=== PATIENT | female | born 1940 | race Caucasian/White ===

== ENCOUNTER → 2019-03-16 15:58 | Outpatient (CLI) | payer OTHER, SELFPAY ==
[2013-07-10 12:32] VITALS: BMI 41.8
--- NOTE | 2019-03-16 16:08 | RAD_ITS ---
STUDY: X-RAY - RIGHT KNEE REASON FOR EXAM: Female, 79 years old. Knee pain. TECHNIQUE: 4 view(s) of the knee. COMPARISON: None. FINDINGS: Normal visualized distal femur. Normal visualized proximal tibia and fibula. Normal proximal tibiofibular articulation. There is mild degenerative arthrosis of the medial femorotibial compartment. Normal lateral femorotibial compartment. There is mild degenerative arthrosis of the patellofemoral articulation. There is lateral patellar tilt. The soft tissue structures are unremarkable. RAD/Knee 4 or More Views IMPRESSION: Degenerative changes. Lateral patellar tilt. Electronically Signed: Preeti Menard MD at 16:56 EDT Tel , Service support ,
== END ==
PROVIDERS: Family Provider Internal Medicine; PCP Internal Medicine; Referring Provider Family Medicine; Visit Provider Family Medicine
DX: M25.561 Pain in right knee (principal)
CPT/HCPCS: 73564

== ENCOUNTER → 2019-08-31 12:43 | Outpatient (CLI) | payer MEDICARE, SELFPAY ==
[2013-07-10 12:32] VITALS: BMI 41.8
[2019-08-31 14:09] LABS: Vitamin D,25 Hydroxy 7.5 ng/mL (29.95-100.01)
[2019-08-31 14:21] LABS: ALB/GLOB Ratio 1.1 RATIO (0.9-2.4); AST(SGOT) 19 U/L (15-37); Alanine Aminotransfer ALT/SGPT 25 U/L (13-56); Albumin, Serum 3.8 g/dL (3.2-5.0); Alkaline Phosphatase 81 U/L (45-117); Anion Gap 7 (5-15); BUN 15 mg/dL (7-18); BUN/Creat Ratio 12.7 RATIO (10-20); Chloride 107 mmol/L (98-107); Cholesterol 249 mg/dL (200); Creatinine, Serum 1.18 mg/dL (0.55-1.02); EST Glomerular Filtration Rate 47 mL/min (>60); Est Glom Filt Rate - Afr Amer 57 mL/min (>60); Globulin 3.6 g/dL (2.2-4.2); Glucose 88 mg/dL (74-106); High Density Lipoprotein 81 mg/dL; Potassium 4.5 mmol/L (3.5-5.1); Protein, Total 7.4 g/dL (6.4-8.2); Sodium Level 138 mmol/L (136-145); Thyroid Stim Hormone (TSH) 1.63 uIU/mL (0.358-3.74); Triglycerides 139 mg/dL; Very Low Density Lipoprotein 28 mg/dL (5-40)
[2019-08-31 15:28] LABS: Hemoglobin 10.8 g/dL (12.0-15.0); Mean Corpuscular Hgb 25.6 pg (27.0-32.0); Mean Corpuscular Volume 85.3 fL (81-99); Mean Platelet Vol. 9.9 fl (6.2-12.0); Platelet Count 194 K/mm3 (150-450); RBC Distribution Width CV 14.8 % (11.6-14.6); RBC Distribution Width SD 46.1 fl (35.1-43.9); Red Blood Count 4.22 M/mm3 (4.2-5.4); White Blood Count 4.9 K/mm3 (4.4-11.0)
== END ==
PROVIDERS: PCP Family Medicine; Referring Provider Family Medicine; Visit Provider Family Medicine
DX: I10 Essential (primary) hypertension (principal); E78.00 Pure hypercholesterolemia, unspecified; K21.9 Gastro-esophageal reflux disease without esophagitis; F32.9 Major depressive disorder, single episode, unspecified
CPT/HCPCS: 36415; 80053; 80061; 82306; 84443; 85027

== ENCOUNTER → 2020-01-19 12:23 | Outpatient (CLI) | payer MEDICARE, SELFPAY ==
--- NOTE | 2020-01-19 12:25 | RAD_ITS ---
STUDY: X-RAY - LUMBAR SPINE REASON FOR EXAM: Female, 80 years old. Several fall in the past, leg pain and low back pain TECHNIQUE: 5 view(s) of the lumbar spine were obtained including oblique views. COMPARISON: None FINDINGS: Normal lumbar lordosis. There is no substantial scoliosis. Grade 1 anterolisthesis of L4 on L5 There is multilevel endplate spondylosis of the lumbar vertebrae. There is multi-level degenerative disc disease with multi-level disc space narrowing. Facet joint osteoarthritis. There is atherosclerotic calcification of the abdominal aorta without a demonstrated aneurysm. RAD/L/S Spine Min 4 Views IMPRESSION: Degenerative changes of the spine, as detailed above. Facet joint osteoarthritis. Grade 1 anterolisthesis of L4 on L5 without spondylolysis. Electronically Signed: Vin Workman, at 13:22 EDT , Service support ,
== END ==
PROVIDERS: PCP Family Medicine; Referring Provider Family Medicine; Visit Provider Family Medicine
DX: M79.606 Pain in leg, unspecified (principal)
CPT/HCPCS: 72110

== ENCOUNTER 2020-02-16 13:00 | Outpatient (RCR) | payer MEDICARE, SELFPAY ==
--- NOTE | 2020-01-31 14:15 | HP.PTEVAL ---
Patient's Visit Information KIM WALKER is a 80 year old F referred to Physical Therapy by Dr. Be Johns MD with a diagnosis of Balance problems , falls. Date of Evaluation: 01/31/20 Physical Therapist: Surendra Bates DPT, OCS, CSCS - Visit Plan Frequency: 2x /Week Duration: 2 Weeks Plan: Pt unable to afford multiple frequency PT visits. Willing to try 3 visits to teach HEP for home. Please teach and give pics for HEP: rows, shoulder ex, shoulder ext rotation. hip abd, march and ext in stand. bridging. heel rasies. minisquats. stand balance. Give as HEP in 3 visits if safety allows with pics. - Subjective Fell twice on back, first time on cement just losing balance. The second time at the end of December fell backwards in the tub. Landed BW both times. Nothing seriously hurt with these falls, just sore. R knee was messed up last summer at [employer] sliding into picnic table, never went to doctor. L knee hurts to strasiten knee 11/18. Has not been out but 4 times in last 3 motnhs. No spinning dizzyness lately. No neuropathy in legs. Could not get up off floor by herself when she fell. Feels safe in bed and sleeps well. Uses wh walker to get around but just started using it. It hurts her arms to walk. Steps outside with railing are OK. Retired.]Not much done during day. No regular exercises. Basic ADLs are getting done as she lives alone, hard to stand long enough to do dishes as she shakes if she stands too long. - Pain L knee and leg Pain Intensity (Out of 10): 0 Pain Intensity Range: 0, 4 - Objective Walks with wh walker using it for much WB through UE and short steps, slightly hunched over. Multiple attempts needed to exit chair with UE. Mat trasnfers slow asnd labored showing weakness in the core. steps not tested today. LE AROM WFL except L knee is missing 10 degrees active ext. HS and quads mod tight, tissue generally tender throughout legs in larger muscles. strength ankles 3+, knees ext L 3- and R 3, flexion 3/5, hip felxion 3+ R and 3 L, abd 3+ B, ext 3 B. reflexes 0/3 patella myrna chilles, no clonus. Sensation WNl to gross light touch LE. Coordination is min deficits to reciprocal toe tap B. Unable to walk without AD today more than 2 steps due to weakness and fear of knee hurting...dysfunctional without walker wh. Unable to test FGA today. Stand balance is fair eo and fair - ec, dynamic perturbations freak her out. - Goals Goal 1:: I approp HEP LE and core ex with baalnce to limit future problems Goal Time Frame: 2 Weeks Goal 2:: Pt able to tolerate 200 feet of walking to perform FGA Goal Time Frame: 2-4 Weeks Goal 3:: Pt feel 50% better in mobility. Goal Time Frame: 4-6 Weeks - Rehabilitation Potential Physical Therapy Diagnosis: Balance and strength deficits from sedentarism last 3 months. Rehabilitation Potential: Fair - Anticipated Interventions Patient/Client Instruction: Educate patient on: Condition, Plan of Care, Risk Factors For the Purpose of:: To improve muscle performance and motor function, To increase tolerance to activity/condition/position, To improve ability of physical actions for home/community/work/leisure, To improve gait and locomotor functions Therapeutic Exercise to Include: Strength training, Balance training, Flexibilty training, Gait and locomotor training, Passive ROM, Active ROM For the Purpose of:: To improve muscle performance and motor function, To increase tolerance to activity/condition/position, To improve ability of physical actions for home/community/work/leisure, To improve safety Thank you for the opportunity to evaluate your patient. For Medicare and Medicare HMO plans, please review the plan of care and approve it. It will need to be FAXED BACK to us at [phone] for Medicare purposes. For Medicare only, by signing this I certify the plan of care. Please let me know if there are questions or concerns regarding this plan of care. Physician Signature: Date:
== END 2020-02-16 19:00 | disposition home or self-care (01) ==
LOC: PT 13:00
PROVIDERS: PCP Family Medicine; Referring Provider Family Medicine; Visit Provider Family Medicine
DX: R26.9 Unspecified abnormalities of gait and mobility (principal); R29.6 Repeated falls
CPT/HCPCS: 97110; 97162

== ENCOUNTER → 2021-01-11 12:53 | Outpatient (CLI) | payer MEDICARE, SELFPAY ==
--- NOTE | 2021-01-11 13:00 | CT_ITS ---
STUDY: CT BRAIN WITHOUT CONTRAST REASON FOR EXAM: Female, 80 years old. Frequent falls. Dizziness. RADIATION DOSAGE (If Supplied By Facility): CTDIvol = ( 44.99 ) mGy, DLP = ( 796.11 ) mGycm TECHNIQUE: Transaxial CT imaging of the brain was performed without administration of intravenous contrast material. Individualized dose optimization techniques were used for this CT. COMPARISON: No relevant priors. FINDINGS: Normal soft tissue structures. Normal calvarium. There is moderate cerebral atrophy with widening of the extra-axial spaces and ventricular dilatation. Prominence of the CSF spaces bilaterally worse on the right side. These changes may be related to chronic subdural hematomas with the patient''s history of frequent falls. Normal white matter tracts of the cerebral hemispheres. Old lacunar infarct in the insular cortex of the left temporal lobe. Normal brainstem. Normal cerebellum. There is no intracranial hemorrhage. There are no findings of an acute ischemic infarction. Atherosclerotic calcification of the vertebral arteries and cavernous portions of the internal carotid arteries bilaterally. Normal visualized paranasal sinuses. CT/Brain/Head without Contrast IMPRESSION: Chronic involutional changes of the brain. Prominence of the CSF spaces overlying the cerebral hemispheres as described. 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 No significant mass effect is seen at this time. Electronically Signed: Vin Workman MD at 13:23 EDT , Service support ,
== END ==
PROVIDERS: PCP Family Medicine; Referring Provider Family Medicine; Visit Provider Family Medicine
DX: R42 Dizziness and giddiness (principal); W19.XXXA Unspecified fall, initial encounter
CPT/HCPCS: 70450

== ENCOUNTER → 2021-01-22 12:27 | Outpatient (CLI) | payer MEDICARE, SELFPAY ==
[2013-07-10 12:32] VITALS: BMI 41.8
--- NOTE | 2021-01-22 12:32 | RAD_ITS ---
HISTORY: Degenerative disc disease of the lumbar spine. 7 views of the lumbar spine. Comparison study is from January 19, 2020. Findings: Gentle levoscoliosis of thoracolumbar spine is more accentuated today. Multilevel degenerative disc disease. This disease is manifested by loss of disc height, endplate sclerosis, and enthesophytes. Facet arthropathy is present at many levels greatest at the L4-L5 and L5-S1 levels. Previous right-sided herniorrhaphy metallic springlike devices are unchanged. Severe atherosclerosis within the abdominal aorta into the iliac arteries persists. Anterior subluxation of L4 and L5 with Modic type endplate changes persist. Anterior subluxation of L5 on S1 with Modic type endplate changes and loss of disc height and endplate sclerosis with vacuum disc phenomenon is present. Between flexion and extension there is minimal reduction of the anterolisthesis of L5 on S1, lower, the anterolisthesis of L4 on L5 remains similar. RAD/L/S Spine w Bend Min 6 Vw IMPRESSION: Multilevel degenerative disc disease greatest at the L4-L5 and L5-S1 levels. Similar. Previous study of January 19, 2020. Between flexion extension and neutral lateral views, however, the anterior subluxation of L5-S1 as Reduces somewhat with flexion. at 0654 Reported and signed by: René Syed MD Electronically Signed: René Syed MD at 6:53 EDT Tel , Service support ,
[2021-01-22 16:11] LABS: Vitamin B12 229 pg/mL (211-911)
[2021-01-22 16:16] LABS: ALB/GLOB Ratio 1.1 RATIO (0.9-2.4); AST(SGOT) 19 U/L (15-37); Alanine Aminotransfer ALT/SGPT 21 U/L (13-56); Albumin, Serum 3.6 g/dL (3.2-5.0); Alkaline Phosphatase 89 U/L (45-117); Anion Gap 9 (5-15); BUN 13 mg/dL (7-18); BUN/Creat Ratio 14.4 RATIO (10-20); Calcium,Total 8.9 mg/dL (8.5-10.1); Chloride 108 mmol/L (98-107); EST Glomerular Filtration Rate 64 mL/min (>60); Est Glom Filt Rate - Afr Amer 77 mL/min (>60); Globulin 3.2 g/dL (2.2-4.2); Glucose 100 mg/dL (74-106); Potassium 3.8 mmol/L (3.5-5.1); Protein, Total 6.8 g/dL (6.4-8.2); Sodium Level 141 mmol/L (136-145); Thyroid Stim Hormone (TSH) 1.83 uIU/mL (0.358-3.74)
[2021-01-22 16:20] LABS: Hematocrit 33.6 % (37-47); Hemoglobin 9.7 g/dL (12.0-15.0); Mean Corp Hgb Conc 28.9 g/dL (32-36); Mean Corpuscular Hgb 23.5 pg (27.0-32.0); Mean Corpuscular Volume 81.4 fL (81-99); Mean Platelet Vol. 9.7 fl (6.2-12.0); Platelet Count 206 K/mm3 (150-450); RBC Distribution Width SD 47.5 fl (35.1-43.9); Red Blood Count 4.13 M/mm3 (4.2-5.4); White Blood Count 4.8 K/mm3 (4.4-11.0)
[2021-01-22 16:25] LABS: Erythrocyte Sedimentation Rate 38 mm/hr (0-30)
[2021-01-24 15:34] LABS: ANTINUCLEAR ANTIBODIES DIRECT Positive (Negative)
== END ==
PROVIDERS: PCP Family Medicine; Referring Provider Family Medicine; Visit Provider Family Medicine
DX: M51.36 Other intervertebral disc degeneration, lumbar region (principal); R20.3 Hyperesthesia; R53.83 Other fatigue
CPT/HCPCS: 36415; 72114; 80053; 82607; 83735; 84443; 85027; 85652; 86038

== ENCOUNTER → 2021-05-08 15:17 | Outpatient (CLI) | payer MEDICARE, SELFPAY ==
[2021-05-08 17:46] LABS: Hematocrit 35.5 % (37-47); Hemoglobin 10.2 g/dL (12.0-15.0); Mean Corp Hgb Conc 28.7 g/dL (32-36); Mean Corpuscular Hgb 22.8 pg (27.0-32.0); Mean Corpuscular Volume 79.4 fL (81-99); Mean Platelet Vol. 9.6 fl (6.2-12.0); Platelet Count 254 K/mm3 (150-450); RBC Distribution Width CV 16.9 % (11.6-14.6); RBC Distribution Width SD 48.3 fl (35.1-43.9); RET-HE 24.1 pg (30-35); Red Blood Count 4.47 M/mm3 (4.2-5.4); Reticulocyte Count 1.06 % (0.5-1.5); White Blood Count 5.4 K/mm3 (4.4-11.0)
[2021-05-08 18:21] LABS: Vitamin B12 541 pg/mL (211-911)
[2021-05-08 18:24] LABS: CRP < 2.90 mg/L (0.0-3.0); Cholesterol 318 mg/dL (200); Ferritin 15 ng/mL (8-252); High Density Lipoprotein 63 mg/dL; Iron 45 ug/dL (50-170); Iron Binding Capacity,Total 432 ug/dL (250-450); Rheumatoid Factor < 10.0 IU/mL (<15); Triglycerides 156 mg/dL; Very Low Density Lipoprotein 31 mg/dL (5-40)
[2021-05-11 09:49] LABS: ANTINUCLEAR ANTIBODIES DIRECT Positive (Negative)
== END ==
PROVIDERS: PCP Family Medicine; Referring Provider Family Medicine; Visit Provider Family Medicine
DX: R76.8 Other specified abnormal immunological findings in serum (principal); D64.9 Anemia, unspecified; E53.8 Deficiency of other specified B group vitamins; E78.00 Pure hypercholesterolemia, unspecified
CPT/HCPCS: 36415; 80061; 82607; 82728; 83540; 83550; 85027; 85045; 86038; 86140; 86431

== ENCOUNTER → 2022-04-22 | Outpatient (CLI) | payer MEDICARE, SELFPAY ==
[2022-04-22 17:48] LABS: Hematocrit 37.1 % (37-47); Mean Corp Hgb Conc 29.6 g/dL (32-36); Mean Corpuscular Hgb 24.7 pg (27.0-32.0); Mean Corpuscular Volume 83.4 fL (81-99); Mean Platelet Vol. 10.2 fl (6.2-12.0); Platelet Count 233 K/mm3 (150-450); RBC Distribution Width CV 16.2 % (11.6-14.6); RBC Distribution Width SD 49.8 fl (35.1-43.9); Red Blood Count 4.45 M/mm3 (4.2-5.4); White Blood Count 6.1 K/mm3 (4.4-11.0)
[2022-04-23 09:06] LABS: Anion Gap 8 (5-15); BUN 17 mg/dL (7-18); BUN/Creat Ratio 16.7 RATIO (10-20); Calcium,Total 9.1 mg/dL (8.5-10.1); Chloride 107 mmol/L (98-107); Cholesterol 211 mg/dL (200); Creatinine, Serum 1.02 mg/dL (0.55-1.02); EST Glomerular Filtration Rate 55 mL/min (>60); Est Glom Filt Rate - Afr Amer 67 mL/min (>60); Glucose 93 mg/dL (74-106); High Density Lipoprotein 63 mg/dL; Sodium Level 139 mmol/L (136-145); Triglycerides 155 mg/dL; Very Low Density Lipoprotein 31 mg/dL (5-40)
[2022-04-27 07:43] LABS: Anti-Nuclear Antibody Test Negative (.)
== END | disposition home or self-care (01) ==
LOC: MFPLAB 15:49
PROVIDERS: PCP Family Medicine; Visit Provider Family Medicine
DX: I10 Essential (primary) hypertension (principal); R76.8 Other specified abnormal immunological findings in serum; D64.9 Anemia, unspecified
CPT/HCPCS: 36415; 80048; 80061; 85027; 86038

== ENCOUNTER → 2023-09-16 | Outpatient (CLI) | payer MEDICARE, SELFPAY ==
[2023-09-16 17:40] LABS: Absolute Lymphocyte Count 1.09 X10^3/uL (0.83-4.51); Absolute Neutrophil Count 4.5 X10^3/uL (2.0-7.7); Basophil# 0.05 X10^3/uL; Basophil% 0.8 % (0-1); Eosinophil# 0.13 X10^3/uL; Eosinophils% 2.1 % (0-5); Hematocrit 36.2 % (37-47); Hemoglobin 10.3 g/dL (12.0-15.0); Lymphocyte # 1.09 X10^3/ul (0.83-4.51); Lymphocyte % 17.2 % (19-41); Mean Corp Hgb Conc 28.5 g/dL (32-36); Mean Corpuscular Hgb 22.5 pg (27.0-32.0); Mean Corpuscular Volume 79.2 fL (81-99); Mean Platelet Vol. 9.6 fl (6.2-12.0); Monocyte# 0.52 X10^3/uL; Monocyte% 8.2 % (0-10); NRBC Flagged by Analyzer 0 % (0-5); Neutrophil # 4.51 X10^3/uL (2.7-7.7); Neutrophil % 71.2 % (47-70); Platelet Count 226 K/mm3 (150-450); RBC Distribution Width CV 17.2 % (11.6-14.6); RBC Distribution Width SD 49.2 fl (35.1-43.9); Red Blood Count 4.57 M/mm3 (4.2-5.4); White Blood Count 6.3 K/mm3 (4.4-11.0)
[2023-09-16 17:53] LABS: Erythrocyte Sedimentation Rate 47 mm/hr (0-30)
[2023-09-16 17:55] LABS: Vitamin B12 340 pg/mL (211-911)
[2023-09-16 18:03] LABS: Anion Gap 4 (5-15); BUN 15 mg/dL (7-18); BUN/Creat Ratio 15.9 RATIO (10-20); Calcium,Total 9.4 mg/dL (8.5-10.1); Chloride 105 mmol/L (98-107); Creatinine, Serum 0.94 mg/dL (0.55-1.02); EST Glomerular Filtration Rate 61 mL/min (>60); Est Glom Filt Rate - Afr Amer 73 mL/min (>60); Glucose 98 mg/dL (74-106); Potassium 3.8 mmol/L (3.5-5.1); Sodium Level 134 mmol/L (136-145); Thyroid Stim Hormone (TSH) 1.54 uIU/mL (0.358-3.74)
== END | disposition home or self-care (01) ==
LOC: MFPLAB 15:40
PROVIDERS: PCP Family Medicine; Visit Provider Family Medicine
DX: R42 Dizziness and giddiness (principal); E53.8 Deficiency of other specified B group vitamins; E03.9 Hypothyroidism, unspecified
CPT/HCPCS: 36415; 80048; 82607; 84443; 85025; 85652

== ENCOUNTER → 2023-10-13 | Outpatient (CLI) | payer MEDICARE, SELFPAY ==
--- NOTE | 2023-10-13 12:42 | CDU_ITS ---
Reason For Study: Dizziness Rt. Velocities/BP Lt. Velocities/BP Prox CCA 79.5/16.8 cm/sec. Prox CCA 95.5/15.2 cm/sec. Mid CCA 74/16.8 cm/sec. Mid CCA 84.6/15.2 cm/sec. Dist CCA 76.2/15.7 cm/sec. Dist CCA 80.2/12.6 cm/sec. Prox ICA 121.1/24.3 cm/sec. Prox ICA 106.5/22.5 cm/sec. Mid ICA 106.5/31.6 cm/sec. Mid ICA 117.4/27.9 cm/sec. Dist ICA 113.8/31.6 cm/sec. Dist ICA 150.3/38.9 cm/sec. Rt. ICA/CCA = 1.59. Lt. ICA/CCA = 1.78. Prox ECA 110.9/17.6 cm/sec. Prox ECA 117.4/6 cm/sec. Rt. Vert. 45.4/9.1 cm/sec. Lt. Vert. 54.2/13.5 cm/sec. Right Extracranial There is homogeneous, smooth atherosclerotic plaque noted in the right common carotid artery. There is heterogeneous, irregular atherosclerotic plaque noted in the right internal carotid artery. There is heterogeneous, irregular atherosclerotic plaque noted in the right external carotid artery. Antegrade flow is noted in the right vertebral artery. Left Extracranial There is homogeneous, smooth atherosclerotic plaque noted in the left common carotid artery. There is heterogeneous, irregular atherosclerotic plaque noted in the left internal carotid artery. The left internal carotid artery is very tortuous. There is heterogeneous, irregular atherosclerotic plaque noted in the left external carotid artery. Antegrade flow is noted in the left vertebral artery. Procedure Carotid Duplex [id number]. This is a Carotid Duplex examination using B-mode, color flow and specral Doppler. Exam performed in department. VL/Carotid Duplex Ultrasound Interpretation Summary Irregular calcific plaque with shadowing at the proximal right internal carotid artery with less than 50% stenosis but close to that range. Less than 50% stenosis right external carotid artery Irregular calcific plaque with shadowing at the proximal left internal carotid artery with slightly elevated velocity in the distal internal carotid artery consistent with 50 to 6 9% stenosis. Less than 50% stenosis left external carotid artery Patent antegrade vertebral arteries bilaterally Ordering Physician: Be Johns Referring Physician: Be Johns Performed By: Leanne White RVT
== END | disposition home or self-care (01) ==
LOC: CVS 12:42
PROVIDERS: PCP Family Medicine; Referring Provider Family Medicine; Visit Provider Family Medicine
DX: R42 Dizziness and giddiness (principal)
CPT/HCPCS: 93880

== ENCOUNTER → 2024-01-27 | Outpatient (CLI) | payer MEDICARE, SELFPAY ==
--- NOTE | 2024-01-27 16:15 | RAD_ITS ---
STUDY: X-RAY - RIGHT SHOULDER REASON FOR EXAM: Female, 84 years old. Pain TECHNIQUE: 4 view(s) of the shoulder. COMPARISON: None. FINDINGS: There is no evidence of fracture or dislocation. There are moderate degenerative changes. There are no radiodense foreign bodies. RAD/Shoulder min 2 Views IMPRESSION: No fracture or dislocation in the right shoulder. Moderate degenerative change. Electronically Signed: John Juarez MD at 10:12 EDT ,
== END | disposition home or self-care (01) ==
LOC: MTRAD 16:12
PROVIDERS: PCP Family Medicine; Referring Provider Nurse Practitioner Family; Visit Provider Nurse Practitioner Family
DX: M25.511 Pain in right shoulder (principal)
CPT/HCPCS: 73030

== ENCOUNTER 2024-01-29 11:58 | Inpatient (IN) | payer MEDICARE, SELFPAY ==
[2024-01-29] VITALS (7 sets, daily range): BP systolic 121–181; BP diastolic 61–102; PULSE 62–88; RESP 16–18; TEMP 36.3–37; O2SAT 94–99; BMI 38.9; BMI 39.2
--- NOTE | 2024-01-29 12:51 | ED.VIS.FALL ---
HPI HPI - Fall History of Present Illness Chief Complaint: Fall Informant: patient and family (sister) Narrative Narrative: 84-year-old female had a fall last night. States she was using her walker and fell backwards, thinks the reason she fell is because her legs have been getting weak and numb, right greater than the left, persistent pain in her low back for years, and occasional dizziness/lightheadedness. She had no syncope. She states she bumped her head on a nearby wall but her head does not hurt she did not lose consciousness or have any other symptoms there. No acute neck injury. She injured her left wrist when she fell, and now she cannot use her walker because of the pain there, and she injured her right upper arm. She has been having right shoulder pain for months she thinks because of using her cane on her right hand. She had x-rays done as an outpatient and she does not know the results yet. She states the weakness and numbness in her legs have been present and progressing over the last month or 2. Additionally she has arthritis in her low back and her knees that have been giving her chronic issues moving all of those areas. Today, she was unable to get up due to weakness although she did not fall today, and the sister states it took 4 people to try to get her up before EMS was called in order to bring her here to the ER. Patient states she lives alone and has a dog. [facility] Medical History Osteoarthritis Hyperlipidemia Hypertension Home Medications ?Medication ?Instructions ?Recorded ?Last Taken ?Type acetaminophen 500 mg tablet 500 - 1,000 mg PO Q6H PRN PRN Pain 07/10/13 Unknown History amlodipine 5 mg tablet 5 mg PO DAILY 01/29/24 01/28/24 History cyanocobalamin (vitamin B-12) 500 500 mcg PO QMONTH anemia 01/29/24 01/28/24 History mcg tablet (B-12 DOTS) multivitamin (Daily Multi-Vitamin 1 tab PO DAILY general 01/29/24 Unknown History tablet) omeprazole 20 mg capsule,delayed 20 mg PO DAILY 01/29/24 01/28/24 History release pravastatin 80 mg tablet 80 mg PO DAILY anemia 01/29/24 01/15/24 History sertraline 100 mg tablet 150 mg PO DAILY depression 01/29/24 01/28/24 History sertraline 50 mg tablet 50 mg PO DAILY depression 01/29/24 01/28/24 History Allergy/AdvReac Type Severity Reaction Status Date / Time Sulfa (Sulfonamide Allergy Unknown Verified 07/17/21 10:21 Antibiotics) Surgical History History of cataract surgery H/O tubal ligation History of bilateral inguinal hernia repair Social History household members: none pets and animals: Yes pets and animals: dog(s) Smoking Status: Current some day smoker tobacco type: cigarettes ROS ROS ED Constitutional Constitutional ED: Denies chills or fever(s) Eyes Eyes: Denies change in vision or diplopia ENT ENT ED: Denies rhinorrhea or sore throat Cardiovascular Cardiovascular: Reports lightheadedness; Denies chest pain, palpitations, pedal edema or syncope Respiratory/Chest Respiratory/Chest: Denies cough or dyspnea Gastrointestinal Gastrointestinal: Denies abdominal pain, diarrhea, nausea or vomiting Genitourinary Genitourinary ED: Denies dysuria or hematuria Musculoskeletal Musculoskeletal: Reports arthralgias and back pain; Denies neck pain Integumentary Denies abscess or rash Neurologic Neurologic: Reports paresthesias RLE and LLE and weakness; Denies headache(s) Psychiatric Psychiatric: Denies anxiety or suicidal thoughts EXAM Physical Exam Const Vital Signs: 01/29/24 12:00 01/29/24 12:02 01/29/24 13:45 Temperature 98.1 F Temperature Source Oral Pulse Rate 62 77 Respiratory Rate 18 18 Respiratory Effort Normal Respiratory Depth Normal Respiratory Pattern Normal Blood Pressure 135/98 H 171/61 H Blood Pressure Mean 110 97 Pulse Ox 97 99 Oxygen Delivery Method Room Air Room Air Room Air 01/29/24 15:45 Temperature Temperature Source Pulse Rate 68 Respiratory Rate 16 Respiratory Effort Respiratory Depth Respiratory Pattern Blood Pressure 121/73 H Blood Pressure Mean 89 Pulse Ox 97 Oxygen Delivery Method Room Air Positive well nourished, well developed and obese General Appearance ED: well developed and NAD Nutritional Appearance: obese HEENT Reports TM's normal bilaterally and moist mucous membranes normocephalic and atraumatic Eyes PERRL and EOMs intact bilaterally Neck full ROM and supple General: Negative for tenderness Resp normal respiratory effort and clear to auscultation bilaterally Cardio regular rate, regular rhythm and no murmurs GI non-tender and non-distended Auscultation: normoactive bowel sounds Palpation: soft Back/Spine no CVA tenderness General Back: other FROM Extremity normal to inspection Extremity Narrative: Ecchymosis and tenderness to the left wrist, distal radius, scaphoid, and the distal ulna. No hand tenderness. No deformities. Limited range of motion of the wrist and fingers due to pain in the wrist, no tenderness at the elbow or the shoulder. With regards to the right upper extremity, she has ecchymosis and tenderness in the right lateral upper arm, there is no deformity, she can move the shoulder well, she does have some pain with doing so. No tenderness of the clavicle or the acromioclavicular joint. There is no significant tenderness in the lower extremities. She does have limited range of motion of the knees due to pain that she states is from arthritis. General Extremety ED: Yes tenderness; Negative for edema or pulses abnormal General Extremity: Negative for edema or pulses abnormal Neuro oriented x3 and CN's II-XII intact bilaterally Neuro Narrative: There is weakness throughout both lower extremities. None in the upper extremities. She has decreased sensation at the bottom of the right foot compared with the left and the lateral aspect of the lower leg On the right. Alvin Coma Scale: document GCS findings Spontaneous Obeys Commands Oriented 15 Sensorium / Orientation: awake and alert Motor Exam: strength abnormal other (And lower extremities, she has weak bilateral thigh flexion, hamstring flexion, foot dorsiflexion and plantarflexion; quadriceps is a little stronger. She is fairly symmetric bilaterally.) and clonus absent Deep Tendon Reflexes: Rt Patellar (L4): 2+, Lt Patellar (L4): 2+, Rt Ankle (S1): 2+ and Lt Ankle (S1): 2+ Deep Tendon Reflexes Back: Rt Patellar (L4): 2+, Lt Patellar (L4): 2+, Rt Ankle (S1): 2+ and Lt Ankle (S1): 2+ Plantar Reflex: Downgoing: bilateral Psych mental status grossly normal and thought process normal Skin no rashes or lesions noted and no wounds MDM MDM MDM Narrative Medical decision making narrative: X-ray of the patient's injuries in addition to obtaining three-view x-rays of the LS-spine, the latter of which in my interpretation show significant anterolisthesis of L4 on L5 and L5 on S1, as well as significant DDD in those levels. No acute fractures. Three-view x-ray series of the right humerus shows no acute fracture or mitral rotation and 3 view x-ray series of the left wrist mitral rotation shows a distal radius fracture. It is nondisplaced, no reduction was needed, and she was splinted see the procedure note. Highly recommended the patient stay in the hospital. She has a very high risk of falling, she has issues with all 4 extremities, she is very resistant to staying but in the end is agreeable. I do not think she has cauda equina syndrome since she does not have any of the bowel or bladder dysfunction this has been a gradual process but I do think a nonemergent MRI of the lumbosacral spine is indicated. I did speak with Dr. Cal Rodriguez with orthopedics, discussed the fact that she is splinted with regards to her left wrist and has the right shoulder pain. He agrees with this treatment and agrees that the patient may be seen as an outpatient, and states that the hospitalist does not need to consult him in the hospital for these injuries. Lab Data Attestation: I reviewed the patient's lab results. Labs: Laboratory Results - last 24 hr 01/29/24 12:59 WBC 5.8 RBC 4.17 L Hgb 9.5 L Hct 32.9 L MCV 78.9 L MCH 22.8 L MCHC 28.9 L RDW Std Deviation 50.6 H RDW Coeff of Dat 17.6 H Plt Count 192 MPV 10.1 Immature Gran % (Auto) 0.700 Neut % (Auto) 81.5 H Lymph % (Auto) 9.1 L [place] % (Auto) 7.9 Eos % (Auto) 0.5 Baso % (Auto) 0.3 Absolute Neuts (auto) 4.7 Absolute Lymphs (auto) 0.53 L Nucleated RBC % 0 Sodium 138 Potassium 3.9 Chloride 106 Carbon Dioxide 24.0 Anion Gap 8 BUN 13 Creatinine 0.75 Estim Creat Clear Calc 63.35 Est GFR (MDRD) Af Amer 95 Est GFR (MDRD) Non-Af 78 BUN/Creatinine Ratio 17.3 Glucose 95 Calcium 8.9 Magnesium 2.2 Radiography Diagnostic Testing: Clinical Impression(s) from Imaging Studies Humerus X-Ray 01/29/24 13:30 IMPRESSION: Normal x-ray examination of the humerus. Electronically Signed: Vin Workman MD at 13:57 EDT , Lumbar Spine X-Ray 01/29/24 13:30 IMPRESSION: Degenerative changes of the spine, as detailed above. 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 Electronically Signed: Vin Workman MD at 14:39 EDT , Wrist X-Ray 01/29/24 13:30 IMPRESSION: Nondisplaced transverse fracture of the distal radial metaphysis. Soft tissue swelling. Electronically Signed: Vin Workman MD at 13:57 EDT , Management Discussion w/another healthcare provider: Hospitalist and Horticultural Nursery Assistant (pura rodriguez) Procedures Upper Extremity Splints Upper Extremity Splint: Orthoglass (AP short arm splint; NVID after placement, tolerated well) Splint Fabrication: Fabricated Location: Left Discharge Plan Dx/Rx/DC Orders Clinical Impression: Closed fracture of left distal radius, Right shoulder pain, Paresthesia of both lower extremities, Weakness of both legs, Multiple falls, DDD (degenerative disc disease), lumbosacral Disposition Disposition: Acute Care Hospital [facility] Discharge Date/Time: 01/29/24 17:03
[2024-01-29 13:19] LABS: Absolute Lymphocyte Count 0.53 X10^3/uL (0.83-4.51); Absolute Neutrophil Count 4.7 X10^3/uL (2.0-7.7); Basophil# 0.02 X10^3/uL; Basophil% 0.3 % (0-1); Eosinophil# 0.03 X10^3/uL; Eosinophils% 0.5 % (0-5); Hematocrit 32.9 % (37-47); Hemoglobin 9.5 g/dL (12.0-15.0); Lymphocyte # 0.53 X10^3/ul (0.83-4.51); Lymphocyte % 9.1 % (19-41); Mean Corp Hgb Conc 28.9 g/dL (32-36); Mean Corpuscular Hgb 22.8 pg (27.0-32.0); Mean Corpuscular Volume 78.9 fL (81-99); Mean Platelet Vol. 10.1 fl (6.2-12.0); Monocyte# 0.46 X10^3/uL; Monocyte% 7.9 % (0-10); NRBC Flagged by Analyzer 0 % (0-5); Neutrophil # 4.72 X10^3/uL (2.7-7.7); Neutrophil % 81.5 % (47-70); POSITIVE DIFFERENTIAL YES; Platelet Count 192 K/mm3 (150-450); RBC Distribution Width CV 17.6 % (11.6-14.6); RBC Distribution Width SD 50.6 fl (35.1-43.9); Red Blood Count 4.17 M/mm3 (4.2-5.4); White Blood Count 5.8 K/mm3 (4.4-11.0)
[2024-01-29 13:24] LABS: Anion Gap 8 (5-15); BUN 13 mg/dL (7-18); BUN/Creat Ratio 17.3 RATIO (10-20); Calcium,Total 8.9 mg/dL (8.5-10.1); Chloride 106 mmol/L (98-107); Creatinine, Serum 0.75 mg/dL (0.55-1.02); EST Glomerular Filtration Rate 78 mL/min (>60); Est Glom Filt Rate - Afr Amer 95 mL/min (>60); Estimated Creatinine Clearance 63.35 ml/min; Glucose 95 mg/dL (74-106); Potassium 3.9 mmol/L (3.5-5.1); Sodium Level 138 mmol/L (136-145)
--- NOTE | 2024-01-29 13:30 | RAD_ITS ---
STUDY: X-RAY - LEFT WRIST REASON FOR EXAM: Female, 84 years old. Injury TECHNIQUE: 3 view(s) of the wrist were obtained. COMPARISON: None. FINDINGS: Nondisplaced transverse fracture of the distal radial metaphysis. Normal radiocarpal articulation. Normal distal radioulnar articulation. Normal carpal bones. Normal carpal articulations. There is degenerative arthrosis of the carpometacarpal articulation of the thumb. Normal second through fifth carpometacarpal articulations. Normal visualized metacarpal bones. Soft tissue swelling. RAD/Wrist min 3 Views IMPRESSION: Nondisplaced transverse fracture of the distal radial metaphysis. Soft tissue swelling. Electronically Signed: Vin Workman MD at 13:57 EDT ,
--- NOTE | 2024-01-29 13:30 | RAD_ITS ---
STUDY: X-RAY - LUMBAR SPINE REASON FOR EXAM: Female, 84 years old. Pain, fall TECHNIQUE: 3 view(s) of the lumbar spine were obtained. COMPARISON: None FINDINGS: Normal lumbar lordosis. There is no substantial scoliosis. Grade 1 anterolisthesis of L4 on L5 due to spondylolysis of the pars intraarticular of the L4 vertebrae. There is multilevel endplate spondylosis of the lumbar vertebrae. There is multi-level degenerative disc disease with multi-level disc space narrowing. There is atherosclerotic calcification of the abdominal aorta without a demonstrated aneurysm. Prior right inguinal hernia repair. RAD/Lumbar Spine 2 or 3 Views IMPRESSION: Degenerative changes of the spine, as detailed above. 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 Electronically Signed: Vin Workman MD at 14:39 EDT ,
--- NOTE | 2024-01-29 13:30 | RAD_ITS ---
STUDY: X-RAY - RIGHT HUMERUS REASON FOR EXAM: Female, 84 years old. injury TECHNIQUE: 3 view(s) of the humerus. COMPARISON: None. FINDINGS: Normal visualized humerus. There is no demonstrated fracture or osseous destructive process. There is no demonstrated soft tissue abnormality. RAD/Humerus min 2 Views IMPRESSION: Normal x-ray examination of the humerus. Electronically Signed: Vin Workman MD at 13:57 EDT ,
[2024-01-29] MEDS: HYDROcodone Bitartrate/Apap 5/325 Tablet PO (15:57)
--- NOTE | 2024-01-29 16:05 | ED.RN ---
1545: patient offered to be placed in a gown, she refused and wanted to remain in her home gown
[2024-01-29 16:37] LABS: Magnesium 2.2 mg/dL (1.6-2.6)
--- NOTE | 2024-01-29 16:55 | PCM.HP.STD ---
HPI - General General Date of Admission: 01/29/24 Date of Service: 01/29/24 Chief Complaint: Fall and left wrist fracture. HPI Narrative KIM WALKER, is a 84 F came to ED after she stumbled back and fall last night while she was trying to feed her cat. She said she lost her balance and fall although she is not able to recall exact mechanism of fall. She has been feeling fatigued and weaker from last few days. She has chronic degenerative arthritis of right shoulder for many years. She is unclear whether she hit her head but denies loss of consciousness. She said probably she fell on her right side and and tried to break fall with left hand therefore she fractured her left wrist. Patient not on blood thinners. Her left wrist was bruised Besides that she has history of chronic lumbar back pain for 20-21 years. She also has numbness from buttock to both lower extremities up to foot region, right is worse than the left. She denies any recent or acute urinary incontinence or retention or bowel incontinence. She denies hitting her back. She denies any recent increase in her back pain but has been slowly progressed over the years She had imagings done in the ER. Her left forearm was splinted [facility] Medical History Osteoarthritis Hyperlipidemia Hypertension Home Medications ?Medication ?Instructions ?Recorded ?Last Taken ?Type acetaminophen 500 mg tablet 500 - 1,000 mg PO Q6H PRN PRN Pain 07/10/13 Unknown History amlodipine 5 mg tablet 5 mg PO DAILY 01/29/24 01/28/24 History omeprazole 20 mg capsule,delayed 20 mg PO DAILY 01/29/24 01/28/24 History release pravastatin 80 mg tablet 80 mg PO DAILY 01/29/24 01/15/24 History sertraline 100 mg tablet 100 mg PO DAILY 01/29/24 01/28/24 History Allergy/AdvReac Type Severity Reaction Status Date / Time Sulfa (Sulfonamide Allergy Unknown Verified 07/17/21 10:21 Antibiotics) Surgical History History of cataract surgery H/O tubal ligation History of bilateral inguinal hernia repair Social History household members: none pets and animals: Yes pets and animals: dog(s) Smoking Status: Current some day smoker tobacco type: cigarettes ROS ROS Narrative Constitutional: Reports chronic fatigue and weakness. No fever. HEENT: Reports systems reviewed and no addt'l complaints, except as documented Respiratory/Chest: No acute shortness of breath or respiratory distress or wheezing. CVS: No chest pain pressure or tightness Gastrointestinal: Intermittent loose bowel movement 1-2 with mucus, chronic problem.. No acute abdominal pain denies coffee ground emesis, hematemesis or vomiting Genitourinary: Denies burning urination or new urinary tract symptoms Musculoskeletal: Chronic degenerative arthritis of right shoulder, right knee and left knee. Chronic back pain. Please see HPI Neurologic: Denies seizure-like symptoms. skin: No ulcer. No rash Endocrinology: Reports systems reviewed and no addt'l complaints, except as documented Hematologic/Lymphatic: Reports systems reviewed and no addt'l complaints, except as documented Rest 14 ROS are negative except as mentioned in HPI Vital Signs Vital Signs Vital Signs: 01/29/24 12:00 01/29/24 12:02 01/29/24 13:45 Temperature 98.1 F Temperature Source Oral Pulse Rate 62 77 Respiratory Rate 18 18 Respiratory Effort Normal Respiratory Depth Normal Respiratory Pattern Normal Blood Pressure 135/98 H 171/61 H Blood Pressure Mean 110 97 Pulse Ox 97 99 Oxygen Delivery Method Room Air Room Air Room Air 01/29/24 15:45 01/29/24 16:05 01/29/24 16:49 Temperature 98.6 F Temperature Source Pulse Rate 68 88 Respiratory Rate 16 16 Respiratory Effort Respiratory Depth Respiratory Pattern Blood Pressure 121/73 H 123/102 H 158/84 H Blood Pressure Mean 89 109 108 Pulse Ox 97 98 Oxygen Delivery Method Room Air Weight Weight: 227 lb 1.218 oz Body Mass Index (BMI) 38.9 Physical Exam Narrative General: Alert, Oriented x3, Cooperative, laying supine HEENT: Atraumatic, PERRLA, EOMI, Normocephalic Oral: Oral mucosa moist no Gingival or Mucosal Lesions/ Ulcerations Neck: Supple, No JVD, Negative Carotid Bruits Chest wall/Lungs: Air entry diminished in bilateral lung bases. No crepitation/rhonchi Cardiovascular: Regular rate, Regular Rhythm, Normal S1, Normal S2, No M/G/R Abdomen: Bowel Sounds Present, Soft, Non Tender, Non-Distended : No dysuria. No renal angle tenderness. No suprapubic tenderness. Extremities: No edema, Capillary Refill Less than 3 Seconds Skin: No rashes, No breakdown Musculoskeletal: Left forearm below elbow level is splinted. Move finger. Chronic right shoulder tenderness, arthritis. Spine: Mild tenderness to deep pressure over lumbar. No cauda equina symptoms Neurological: Cranial nerves II-XII grossly intact, DTR 2+/4. No acute focal neurological deficit. Psych/Mental Status: Normal Affect, Appropriate. Results Lab / Micro Data 01/29/24 12:59 01/29/24 12:59 Labs: Laboratory Results - last 24 hr 01/29/24 12:59: WBC 5.8, RBC 4.17 L, Hgb 9.5 L, Hct 32.9 L, MCV 78.9 L, MCH 22.8 L, MCHC 28.9 L, RDW Std Deviation 50.6 H, RDW Coeff of Dat 17.6 H, Plt Count 192, MPV 10.1, Immature Gran % (Auto) 0.700, Neut % (Auto) 81.5 H, Lymph % (Auto) 9.1 L, [place] % (Auto) 7.9, Eos % (Auto) 0.5, Baso % (Auto) 0.3, Absolute Neuts (auto) 4.7, Absolute Lymphs (auto) 0.53 L, Nucleated RBC % 0, Sodium 138, Potassium 3.9, Chloride 106, Carbon Dioxide 24.0, Anion Gap 8, BUN 13, Creatinine 0.75, Estim Creat Clear Calc 63.35, Est GFR (MDRD) Af Amer 95, Est GFR (MDRD) Non-Af 78, BUN/Creatinine Ratio 17.3, Glucose 95, Calcium 8.9, Magnesium 2.2 Imaging Radiology Impression Humerus X-Ray 01/29/24 13:30 IMPRESSION: Normal x-ray examination of the humerus. Electronically Signed: Vin Workman MD at 13:57 EDT , Lumbar Spine X-Ray 01/29/24 13:30 IMPRESSION: Degenerative changes of the spine, as detailed above. 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 Electronically Signed: Vin Workman MD at 14:39 EDT , Wrist X-Ray 01/29/24 13:30 IMPRESSION: Nondisplaced transverse fracture of the distal radial metaphysis. Soft tissue swelling. Electronically Signed: Vin Workman MD at 13:57 EDT , Assessment & Plan Assessment/Plan (1) Closed fracture of left distal radius: PLAN: Plan This is a 84-year-old female is being admitted after she fell down, lost her balance while trying to feed her cat 1. Fall with fracture of distal radial metaphysis: Patient has been on MedSurg floor. Wrist x-ray shows nondisplaced transverse fracture of distal radial metaphysis with soft tissue swelling. In the ED patient was splinted with Rickey wrap bandage. Orthopedic surgery is consulted. Pain control. PT and OT ordered 2. Chronic degenerative arthritis involving right shoulder, bilateral knees and lumbar degenerative arthritis: Patient had x-ray of lumbar spine shows grade 1 mild anterolisthesis of L4 on L5 due to spondylolysis of the pars interarticularis of L4 vertebrae. Patient has chronic back pain for 20-21 years with chronic numbness from buttock region down to feet, right worse than left. Currently her back pain is not concerning and is mostly on movement. She denies falling on the back, but he states she might have fallen on the right side. She denies hitting her head but to ED physician documentation it is initiated. No bruise found on the head. No LOC. Right humerus x-ray shows normal exam. Right shoulder x-ray shows moderate degenerative change. I advised her main concern is right wrist fracture. When pain is controlled, she can follow-up with the orthospine surgeon and can have MRI of lumbar spine nonurgent or as an outpatient. No cardiac renal signs found. 3. Hypertension: Blood pressure was 135/98 but increased to 171/61. It is variable. Blood pressure is controlled as per HPI. On amlodipine continued 4. Dyslipidemia: On pravastatin 80 mg daily continued 5. DVT prophylaxis: High risk. Enoxaparin 40 mill subcu daily Living will/advanced directive/end of life care: Patient does not have living will or advanced directive. She is in the process of making a living will. Her sister present in the ED is next of kin but does not have degrade power of litigation attorney for health. After discussion of benefits/risks procedures involved with full code, DNR CC arrest and DNR CC, the patient opted for DNR CC arrest with no intubation. She also sent that she would like to donate her organs after she is tissue intact. I told further to follow with PCP to make a living will and anatomical organ donation papers Patient doesn't want artificial life support including intubation, tube feed, ventilator and/chest compression, central venous catheter, vasopressor and DC shock if needed Total time spent in [id number] encounter in discussion of advanced directive 17 minutes. Laboratory Results 01/29/24 12:59: WBC 5.8, RBC 4.17 L, Hgb 9.5 L, Hct 32.9 L, MCV 78.9 L, MCH 22.8 L, MCHC 28.9 L, RDW Std Deviation 50.6 H, RDW Coeff of Dat 17.6 H, Plt Count 192, MPV 10.1, Immature Gran % (Auto) 0.700, Neut % (Auto) 81.5 H, Lymph % (Auto) 9.1 L, [place] % (Auto) 7.9, Eos % (Auto) 0.5, Baso % (Auto) 0.3, Absolute Neuts (auto) 4.7, Absolute Lymphs (auto) 0.53 L, Nucleated RBC % 0, Sodium 138, Potassium 3.9, Chloride 106, Carbon Dioxide 24.0, Anion Gap 8, BUN 13, Creatinine 0.75, Estim Creat Clear Calc 63.35, Est GFR (MDRD) Af Amer 95, Est GFR (MDRD) Non-Af 78, BUN/Creatinine Ratio 17.3, Glucose 95, Calcium 8.9, Magnesium 2.2 Clinical Impression(s) from Imaging Studies Humerus X-Ray 01/29/24 13:30 IMPRESSION: Normal x-ray examination of the humerus. Electronically Signed: Vin Workman MD at 13:57 EDT , Lumbar Spine X-Ray 01/29/24 13:30 IMPRESSION: Degenerative changes of the spine, as detailed above. 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 Wrist X-Ray 01/29/24 13:30 IMPRESSION: Nondisplaced transverse fracture of the distal radial metaphysis. Soft tissue swelling. Electronically Signed: Vin Workman MD at 13:57 EDT , Charges/Coding Visit Charges Inpatient E&M: 10938 Init Hosp L3 Procedures Hospitalists Procedures: 99166 Advncd Care Plan 30 Min
[2024-01-29] MEDS: 0.9% Normal Saline (1000mL) 1,000 ML 75 ML IV (18:03)
[2024-01-29] MEDS: oxyCODONE 5 MG Tablet PO (19:34)
[2024-01-29] MEDS: Senna/Docusate Sodium 1 Tablet 2 TABLET PO (20:54)
[2024-01-29] MEDS: Acetaminophen 500 MG Tablet 1000 MG PO (20:54)
[2024-01-29] MEDS: amLODIPine 5 MG Tablet PO (20:58)
[2024-01-29] MEDS: Morphine 2 MG/ML Syringe IV (23:35)
[2024-01-30] MEDS: Acetaminophen 500 MG Tablet 1000 MG PO ×3 (05:34→20:07)
[2024-01-30] MEDS: oxyCODONE 5 MG Tablet PO ×4 (05:35→20:07)
[2024-01-30 05:38] VITALS: BP 172/71; PULSE 73; RESP 16; TEMP 36.4; O2SAT 95
[2024-01-30 05:54] VITALS: PULSE 73
[2024-01-30] MEDS: hydrALAZINE 20 MG/ML Vial 10 MG IV (05:54)
[2024-01-30 07:16] VITALS: O2SAT 98
[2024-01-30 07:41] LABS: Absolute Lymphocyte Count 0.76 X10^3/uL (0.83-4.51); Absolute Neutrophil Count 2.4 X10^3/uL (2.0-7.7); Basophil# 0.02 X10^3/uL; Basophil% 0.5 % (0-1); Eosinophils% 2.7 % (0-5); Hematocrit 32.7 % (37-47); Hemoglobin 9.2 g/dL (12.0-15.0); Lymphocyte # 0.76 X10^3/ul (0.83-4.51); Lymphocyte % 20.4 % (19-41); Mean Corp Hgb Conc 28.1 g/dL (32-36); Mean Corpuscular Volume 81.8 fL (81-99); Mean Platelet Vol. 10.2 fl (6.2-12.0); Monocyte# 0.42 X10^3/uL; Monocyte% 11.3 % (0-10); NRBC Flagged by Analyzer 0 % (0-5); Neutrophil # 2.41 X10^3/uL (2.7-7.7); Neutrophil % 64.6 % (47-70); Platelet Count 159 K/mm3 (150-450); RBC Distribution Width CV 17.8 % (11.6-14.6); RBC Distribution Width SD 52.9 fl (35.1-43.9); White Blood Count 3.7 K/mm3 (4.4-11.0)
[2024-01-30] MEDS: Enoxaparin 40 MG/0.4 ML Syringe SC (08:09)
[2024-01-30] MEDS: Pantoprazole Sodium 20 MG Tablet PO (08:09)
[2024-01-30] MEDS: Senna/Docusate Sodium 1 Tablet 2 TABLET PO ×2 (08:10→20:07)
[2024-01-30] MEDS: Sertraline 100 MG Tablet PO (08:10)
[2024-01-30 08:11] LABS: Ferritin 22 ng/mL (8-252); Iron 27 ug/dL (50-170); Iron Binding Capacity,Total 337 ug/dL (250-450)
[2024-01-30] MEDS: amLODIPine 5 MG Tablet PO (08:14)
[2024-01-30] MEDS: Ensure Plus High Protein 120 ML LIQUID PO ×2 (08:14→15:00)
[2024-01-30] MEDS: Sertraline 50 MG Tablet PO (08:14)
[2024-01-30 08:18] LABS: Anion Gap 7 (5-15); BUN 11 mg/dL (7-18); Calcium,Total 8.9 mg/dL (8.5-10.1); Chloride 105 mmol/L (98-107); Creatinine, Serum 0.73 mg/dL (0.55-1.02); EST Glomerular Filtration Rate 81 mL/min (>60); Est Glom Filt Rate - Afr Amer 98 mL/min (>60); Estimated Creatinine Clearance 61.07 ml/min; Glucose 90 mg/dL (74-106); Potassium 3.4 mmol/L (3.5-5.1); Sodium Level 138 mmol/L (136-145)
[2024-01-30 08:25] VITALS: BP 164/89; PULSE 75; RESP 18; TEMP 36.3; O2SAT 98
--- NOTE | 2024-01-30 10:29 | CASEMGMT ---
Discharge Planning A list of HH providers including quality and resource use data and consistent with the patient's preferred geographic region, medical needs, and insurance network was created in [employer] Guide.? This list was provided to the RN NATHANIEL. Domonique Alexander, Discharge Planning Asst.
[2024-01-30] MEDS: Sodium Ferric Gluconat 250 MG in 0.9% Normal Saline 250 ML 135 MG IV (10:31)
[2024-01-30] MEDS: 0.9% Saline Lock 10 ML Syringe IV ×2 (10:38→18:39)
--- NOTE | 2024-01-30 11:29 | CASEMGMT ---
Addendum entered by Judson Rodriguez 01/30/24 12:20: [facility] calls and states that they can tentatively start care on Friday (02/02) contingent on if Dr. Johns is willing to follow the [facility] or not. [facility] states that they called Dr. Johns's office and they stated that Dr. Johns is out of office today and they they will need to follow up with him to see if he would like to see the pt first or not before starting home health care. Plan is to set an appt with Dr. oJhns and tentatively start HHC on Friday. MS ARELY ARMSTRONG updated. Original Note: RN CM Assessment Face to Face with patient for initial transition planning/care coordination assessment. ARELY ARMSTRONG introduced self and role at [facility], pt voices understanding. Pt is A&Ox4 and is resting comfortably in the chair and is calm. Care providers, pharmacy, and demographics verified. Admitting dx: Fall PCP: Terence Johns Specialists: Denies Preferred Pharmacy: [facility] Insurance: [facility] Prescription Benefit: Yes LNOK: Soledad Barrera (Sister), Yvonne Marr (DIL) Living Arrangements: Pt lives alone in a single story home with 2 steps to enter ADLs/IADLs: Ind at baseline Transportation: Pt states that she does not currently have a vehicle. Pt states that her sister, cousin, and friend provide transportation DME: Cane, FWW, Shower GB and chair, BP Cuff HHC/SNF: Denies history. Pt?s goal: Home with HHC Plan: PT is recommending HHC. 6-click is 20. The pt refused the HHC list that was provided and states that she wants to use [facility]. TC to [facility] and referral made for PT. [facility] states that their OT is off work currently and that they will add OT once they return to work. Pt states that she does not need SN. Pt is projected for DC today. Awaiting return call from [facility] for acceptance and SOC date. CM to follow. Gopal Rodriguez RN, CM
--- NOTE | 2024-01-30 12:00 | CASEMGMT ---
Addendum entered by Elisabet Méndez 01/30/24 15:50: ARELY ARMSTRONG notified pt [facility] will start care on 02/03/24. Original Note: Nurse notified ARELY ARMSTRONG family in room requesting to speak with CM. Pt sitting up in chair with grandson sitting at bedside. Grandson expressed concerns with pt going home, concerned pt will fall again. Pt states has several friends and family close by that can assist. Pt states feels safe going home with [facility] PT. Pt states I with ADLs, does need assistance to transportation. Has friends and family that take her to get groceries. ARELY ARMSTRONG would like list of local private duty aides and meal delivery services to have for in the future, ARELY ARMSTRONG provided lists to pt.
--- NOTE | 2024-01-30 12:31 | PCM.DC.SUM ---
Providers Date of Admission: 01/29/24 Date of Discharge: 01/30/24 Primary Care Physician: Dr. Terence Johns MD Consultations 01/29/24 17:06 Consult: Orthopedics Routine Consulting Provider: Cal Rodriguez Reason for Consult: Left wrist fracture. EMERGENT Consult: No MD Notified: Yes Date Notified: 01/29/24 Time Notified: 16:55 Method of Notification: ED Physician Initiated Reason For Visit: FALL Diagnosis Discharge Diagnosis (1) Closed fracture of left distal radius: Status: Acute Code(s): S52.502A - Unspecified fracture of the lower end of left radius, initial encounter for closed fracture (2) Multiple falls: Status: Acute Code(s): R29.6 - Repeated falls Medications at Discharge Home Medications amlodipine 5 mg tablet 5 mg PO DAILY 01/29/24 cyanocobalamin (vitamin B-12) 500 mcg tablet (B-12 DOTS) 500 mcg PO QMONTH anemia 01/29/24 multivitamin (Daily Multi-Vitamin tablet) 1 tab PO DAILY general 01/29/24 omeprazole 20 mg capsule,delayed release 20 mg PO DAILY 01/29/24 pravastatin 80 mg tablet 80 mg PO DAILY anemia 01/29/24 sertraline 100 mg tablet 150 mg PO DAILY depression 01/29/24 sertraline 50 mg tablet 50 mg PO DAILY depression 01/29/24 acetaminophen 500 mg tablet 1,000 mg (2 x 500 mg) PO Q8 14 days #0 tabs 01/30/24 oxycodone 5 mg tablet 5 mg PO Q6H PRN pain 5 days #20 tabs 01/30/24 Hospital Course Operations None Procedures - (Right wrist and humerus x-ray, lumbar spine x-ray) Summary of Care Provided Minutes Spent on Discharge: 35 Hospital Course: Patient is an 84-year-old female who presented to [facility] ED on 01/29/2024 after a fall at home. Short hospital course as noted below. Discharged home with home health care in stable condition on 01/29. 1. Acute on chronic debility with mechanical fall at home; chronic degenerative arthritis of right shoulder, bilateral knees and lumbar spine ? PT/OT/case management followed. L-spine x-ray on admit with degenerative changes of spine and grade 1 anterolisthesis of L4 on L5, no acute findings. Left humerus x-ray unremarkable. Left wrist x-ray with closed left distal radius fracture as noted below. Treatment of wrist fracture has not below. Did well with therapy on hospital day 2, okay for discharge home with home health care. Scheduled Tylenol on discharge until outpatient follow-up with orthopedics. Oxycodone 5 mg every 6 hours as needed for 5 days prescribed chart for pain control. Splint placed in hospital. 2. Closed left distal radius fracture ? Noted on left wrist x-ray on admission. Splint placed in hospital, will have close outpatient follow-up with orthopedics after discharge. Pain control as noted above. 3. Chronic iron deficiency anemia ? Hemoglobin 9.5 on admit, slightly decreased to 9.2 on hospital day 2. Iron level and iron saturation low and ferritin 22, consistent with iron deficiency anemia. Given 1 dose of IV iron while inpatient. Recommended patient follow-up with PCP to discuss further IV iron infusions going forward. Chronic medical conditions: ? Obesity: BMI 39 on admit. Complicated hospital course, care and prognosis. ? Hypertension: Stable. Continue home amlodipine. ? Hyperlipidemia: Continue home statin. ? GERD: Continue home PPI. ? Depression: Stable. Continue home sertraline. Total clinical time spent by myself addressing the patient's medical issues, reviewing all the data, and collaborating with patient's care team: 35 minutes. Physical Exam Const alert, oriented x3 and no apparent distress Constitutional Narrative: Pleasant elderly female, obese, sitting up comfortably in bedside chair, conversing normally, in no acute distress. General Appearance: cooperative and comfortable HEENT normocephalic, head/scalp atraumatic, hearing grossly normal bilaterally, nasal mucous membranes and turbinates normal and moist oral mucous membranes Eyes PERRL, EOMs intact bilaterally and conjunctivae normal Neck full ROM Chest inspection of chest normal Resp normal respiratory effort, normal air movement, no use of accessory muscles and clear to auscultation bilaterally Cardio regular rate, regular rhythm, no murmurs and peripheral pulses 2+ throughout GI normal to inspection, nondistended, normoactive bowel sounds, soft to palpation, non-tender and non-distended Back/Spine normal ROM Extremity Extremity Narrative: Left wrist wrapped in splint, stable. Skin no rashes or lesions noted Neuro moves all extremities and no focal motor deficits Psych mental status grossly normal Weight / BMI Weight Weight: 99.79 kg Body Mass Index (BMI) 38.9 ABG / Lab / Microbiology Data 01/30/24 06:03 01/30/24 06:03 Laboratory: Laboratory Results - last 24 hr 01/29/24 12:59: WBC 5.8, RBC 4.17 L, Hgb 9.5 L, Hct 32.9 L, MCV 78.9 L, MCH 22.8 L, MCHC 28.9 L, RDW Std Deviation 50.6 H, RDW Coeff of Dat 17.6 H, Plt Count 192, MPV 10.1, Immature Gran % (Auto) 0.700, Neut % (Auto) 81.5 H, Lymph % (Auto) 9.1 L, [place] % (Auto) 7.9, Eos % (Auto) 0.5, Baso % (Auto) 0.3, Absolute Neuts (auto) 4.7, Absolute Lymphs (auto) 0.53 L, Nucleated RBC % 0, Sodium 138, Potassium 3.9, Chloride 106, Carbon Dioxide 24.0, Anion Gap 8, BUN 13, Creatinine 0.75, Estim Creat Clear Calc 63.35, Est GFR (MDRD) Af Amer 95, Est GFR (MDRD) Non-Af 78, BUN/Creatinine Ratio 17.3, Glucose 95, Calcium 8.9, Magnesium 2.2 01/30/24 06:03: WBC 3.7 L, RBC 4.00 L, Hgb 9.2 L, Hct 32.7 L, MCV 81.8, MCH 23.0 L, MCHC 28.1 L, RDW Std Deviation 52.9 H, RDW Coeff of Dat 17.8 H, Plt Count 159, MPV 10.2, Immature Gran % (Auto) 0.500, Neut % (Auto) 64.6, Lymph % (Auto) 20.4, [place] % (Auto) 11.3 H, Eos % (Auto) 2.7, Baso % (Auto) 0.5, Absolute Neuts (auto) 2.4, Absolute Lymphs (auto) 0.76 L, Nucleated RBC % 0, Sodium 138, Potassium 3.4 L, Chloride 105, Carbon Dioxide 26.0, Anion Gap 7, BUN 11, Creatinine 0.73, Estim Creat Clear Calc 61.07, Est GFR (MDRD) Af Amer 98, Est GFR (MDRD) Non-Af 81, BUN/Creatinine Ratio 15.0, Glucose 90, Calcium 8.9, Iron 27 L, TIBC 337, Iron Saturation 8.0 L, Ferritin 22, TSH 2.70 Radiography Diagnostic Testing: Radiology Impression Humerus X-Ray 01/29/24 13:30 IMPRESSION: Normal x-ray examination of the humerus. Electronically Signed: Vin Workman MD at 13:57 EDT , Lumbar Spine X-Ray 01/29/24 13:30 IMPRESSION: Degenerative changes of the spine, as detailed above. 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 Electronically Signed: Vin Workman MD at 14:39 EDT , Wrist X-Ray 01/29/24 13:30 IMPRESSION: Nondisplaced transverse fracture of the distal radial metaphysis. Soft tissue swelling. Electronically Signed: Vin Workman MD at 13:57 EDT , Meaningful Use Info Meaningful Use Meaningful Use Diagnoses (Choose all that apply): None applicable Ischemic Stroke Statin Dosing Therapy Reference: STATIN DOSE THERAPY REFERENCE: * Patients > 75 years receive moderate or high dose statin therapy. * Patients 75 years or YOUNGER should receive HIGH intensity statin dose unless contraindicated. You will be required to document reason for non-treatment if statin daily dose does not meet guidelines. HIGH DOSE STATIN THERAPY DAILY Atorvastatin > than or = to 40 mg Rosuvastatin > than or = to 20 mg Amlodipine + Atorvastatin > than or = to 2.5/40 mg Ezetimibe + Simvastatin 10/80 mg Simvastatin 80mg Discharge Plan Admission Admit Date/Time: 06/20/24 15:49 Primary Reason for Your Visit: Fall with left wrist pain Attending Provider: Noah Hand Primary Care Provider: Terence Johns Consulting Providers: Cal Rodriguez; Kobe Baxter Instructions Additional Instructions / Restrictions: Please take scheduled Tylenol until you see orthopedic surgery in the office. You can take oxycodone 5 mg every 6 hours as needed for the next 5 days. Follow-up with orthopedic surgery in the office as scheduled. Discharge Orders/Prescriptions Prescriptions: New acetaminophen 500 mg Tablet 1,000 mg PO Q8 14 Days Qty: 0 0RF oxycodone 5 mg tablet 5 mg PO Q6H PRN (Reason: pain) 5 Days Qty: 20 0RF Continued sertraline 100 mg tablet 150 mg PO DAILY amlodipine 5 mg tablet 5 mg PO DAILY pravastatin 80 mg tablet 80 mg PO DAILY Patient Comments: PT STATES SHE HAS NOT TAKEN CHOLESTEROL MED IN ABOUT 2 WEEKS omeprazole 20 mg capsule,delayed release(DR/EC) 20 mg PO DAILY sertraline 50 mg tablet 50 mg PO DAILY multivitamin [Daily Multi-Vitamin] Tablet 1 tab PO DAILY cyanocobalamin (vitamin B-12) [B-12 DOTS] 500 mcg tablet 500 mcg PO QMONTH Discontinued acetaminophen 500 MG tablet 500 - 1,000 mg PO Q6H PRN PRN (Reason: Pain) Referrals / Follow Up: Terence Johns MD [Primary Care Provider] - Disposition Disposition (needs filled in before D/C Order can be placed): Home Health Service Charges/Coding Visit Charges Inpatient E&M: 44843 Disch Hosp >30min
--- NOTE | 2024-01-30 17:06 | CASEMGMT ---
Social Work- SDOH SW met with patient at bedside to complete SDOH. Patient completed SDOH. Patient informed SW that her oven is not working at home. Patient states that her oven coils are not working. Patient utilize a microwave and crock pot to cook meals. Patient declined any resources. Patient informed SW that she has community action come to her home to assist with providing insulation, new air conditioner, and refrigerator in the home. Patient denies any concerns for transportation, food insecurity, or utility concerns. Patient informed SW that she has support from family for transportation and delivery of groceries. Patient informed SW that she will be discharging home with home care. Patient informed SW that her children and grandchildren are currently at her home making it safe. Patient informed SW that she does not want to discharge today due to pain in arm and swelling. SW informed patient that discharge has been completed by physician. LUIS Leigh
[2024-01-30] MEDS: HYDROmorphone 0.5 MG/0.5 ML SYRINGE IV (18:38)
[2024-01-30] MEDS: Pravastatin 80 MG Tablet PO (20:07)
[2024-01-30 20:10] VITALS: BP 155/64; PULSE 74; RESP 16; TEMP 36.4; O2SAT 96
[2024-01-31] MEDS: oxyCODONE 5 MG Tablet PO ×2 (02:00→10:24)
[2024-01-31 02:18] VITALS: BP 145/62; PULSE 73; RESP 16; TEMP 36.1; O2SAT 95
[2024-01-31] MEDS: Acetaminophen 500 MG Tablet 1000 MG PO (05:19)
[2024-01-31 07:16] LABS: Mucous, Urine 0 SEEN /hpf (<or=2+)
[2024-01-31 07:47] LABS: Color, Urine Yellow (Yellow); Glucose, Dipstick Normal (Normal); Ketone-Dipstick Negative (Negative); Leukocyte Esterase-Dipstick 100 /ul (Negative); Nitrite-Dipstick Negative (Negative); Occult Blood-Urine 10 /ul (Negative); Protein-Dipstick Negative (Negative); Urine Bilirubin Dipstick Negative (Negative); Urine Clarity Sl. Cloudy (Clear); Urine Urobilinogen Normal (Normal)
[2024-01-31 07:56] LABS: Bacteria 3+ /hpf (None Seen); Red Blood Cells-Urine 0-5 SEEN /hpf (0-5); Squamous Epithelial Cells - UA 0-5 SEEN /hpf (5-10); Transitional Epithelial - Ur 0-5 SEEN /hpf (0-5); White Blood Cells 10-25 SEEN /hpf (0-5)
[2024-01-31] MEDS: Senna/Docusate Sodium 1 Tablet 2 TABLET PO (10:20)
[2024-01-31] MEDS: Sertraline 100 MG Tablet PO (10:21)
[2024-01-31] MEDS: Sertraline 50 MG Tablet PO (10:21)
[2024-01-31] MEDS: Pantoprazole Sodium 20 MG Tablet PO (10:22)
[2024-01-31] MEDS: Enoxaparin 40 MG/0.4 ML Syringe SC (10:22)
[2024-01-31] MEDS: amLODIPine 5 MG Tablet PO (10:22)
[2024-01-31] MEDS: 0.9% Saline Lock 10 ML Syringe IV (10:58)
[2024-01-31] MEDS: Sodium Ferric Gluconat 250 MG in 0.9% Normal Saline 250 ML 135 MG IV (10:59)
[2024-01-31 11:00] VITALS: BP 140/65; PULSE 85; RESP 16; TEMP 36.6; O2SAT 93
--- NOTE | 2024-02-02 16:02 | CASEMGMT ---
Lisa from [facility] states to this RN CM that they are not starting the pt on [facility] services due to doctor Andreas not following for C orders because the pt has not scheduled a follow up appt with him. Lisa states that nobody has been able to get in contact with the pt so the pt can be advised again to create the f/u appt. This RN CM tried to call the pt at this time with no answer. VM not left d/t the line not being confidential.
== END 2024-01-31 13:45 | disposition home health service (06) | DRG 563 ==
LOC: ED 15:55 → MS3 16:15
PROVIDERS: Admitting Provider Internal Medicine; Emergency Provider Emergency Medicine; PCP Family Medicine; Visit Provider Hospitalist
DX: S52.502A Unspecified fracture of the lower end of left radius, initial encounter for closed fracture (principal); D50.9 Iron deficiency anemia, unspecified; E78.5 Hyperlipidemia, unspecified; F17.210 Nicotine dependence, cigarettes, uncomplicated; E66.9 Obesity, unspecified; I10 Essential (primary) hypertension; F32.A Depression, unspecified; M43.16 Spondylolisthesis, lumbar region; M17.0 Bilateral primary osteoarthritis of knee; M19.011 Primary osteoarthritis, right shoulder; M51.37 Other intervertebral disc degeneration, lumbosacral region; K21.9 Gastro-esophageal reflux disease without esophagitis; W01.0XXA Fall on same level from slipping, tripping and stumbling without subsequent striking against object, initial encounter; R29.898 Other symptoms and signs involving the musculoskeletal system; Z91.81 History of falling; Z51.5 Encounter for palliative care; Z66 Do not resuscitate; R29.6 Repeated falls; Z68.39 Body mass index [BMI] 39.0-39.9, adult; Y92.009 Unspecified place in unspecified non-institutional (private) residence as the place of occurrence of the external cause
CPT/HCPCS: 72100; 73030; 73060; 73110; 80048; 81001; 82728; 83540; 83550; 83735; 84443; 85025; 94668; 97110; 97162; 97166; 97535; 97802; 99284; J7030; J7050; A4216; J2916

== ENCOUNTER → 2024-04-05 | Outpatient (CLI) | payer MEDICARE, SELFPAY ==
--- NOTE | 2024-04-05 11:47 | RAD_ITS ---
STUDY: X-RAY - LEFT FOOT CLINICAL: Female, 84 years old. PAIN TECHNIQUE: 3 views of the left foot. COMPARISON: None. FINDINGS: Intact talus, calcaneus, and tarsal bones. There is a tiny plantar calcaneal spur. Normal visualized subtalar, talonavicular, calcaneocuboid, and tarsal articulations. There is mild degenerative arthrosis at the first tarsometatarsal joint. Normal metatarsi. Normal metatarsophalangeal joint of the great toe. Normal tibial and fibular sesamoid bones. Normal interphalangeal joint of the great toe. Normal phalanges of the great toe. Normal second through fifth metatarsophalangeal joints. Normal interphalangeal joints and phalanges of the lesser toes. There is no demonstrated acute fracture. There is soft tissue swelling along the dorsum of the foot. RAD/Foot min 3 Views IMPRESSION: Mild degenerative arthrosis at the first tarsometatarsal joint. Soft tissue swelling along the dorsum of the foot. Tiny plantar calcaneal spur. Electronically Signed: Manoj Nava MD at 12:13 EDT ,
--- NOTE | 2024-04-05 11:47 | RAD_ITS ---
STUDY: X-RAY - LEFT ANKLE REASON FOR EXAM: Female, 84 years old. Pain. TECHNIQUE: 3 views of the left ankle. COMPARISON: None. FINDINGS: Normal visualized distal tibia and fibula. Normal medial and lateral malleoli. Normal tibiotalar articulation and ankle mortise. Intact visualized talus and calcaneus. There is a tiny plantar calcaneal spur. The visualized subtalar, talonavicular, calcaneocuboid and tarsal articulations are normal. There is no demonstrated acute fracture. The soft tissue structures are unremarkable. RAD/Ankle min 3 Views IMPRESSION: Tiny plantar calcaneal spur. No demonstrated acute fracture. Electronically Signed: Manoj Nava MD at 12:15 EDT ,
== END | disposition home or self-care (01) ==
LOC: MTRAD 11:45
PROVIDERS: PCP Family Medicine; Referring Provider Family Medicine; Visit Provider Family Medicine
DX: M25.572 Pain in left ankle and joints of left foot (principal); M79.672 Pain in left foot
CPT/HCPCS: 73610; 73630

== ENCOUNTER → 2024-06-03 | Outpatient (CLI) | payer MEDICARE, SELFPAY ==
--- NOTE | 2024-06-03 09:21 | BD_ITS ---
STUDY: DUAL ENERGY X-RAY ABSORPTIOMETRY / DXA REASON FOR EXAM: Female, 84 years old. [id number] TECHNIQUE: Bone Mineral Density (BMD) measurements of lumbar spine and bilateral hips were obtained. COMPARISON: None. FINDINGS: Lumbar Spine (L1-L4): g/cm2 (0.928) / T-score (-1.1) / Z-score (1.7) Findings are suggestive of osteopenia with a low fracture risk. Left Femur Total: g/cm2 (0.535) / T-score (-3.3) / Z-score (-1.1) Left Femoral Neck: g/cm2 (0.386) / T-score (-4.2) / Z-score (-1.8) Right Femur Total: g/cm2 (0.526) / T-score (-3.4) / Z-score (-1.2) Right Femoral Neck: g/cm2 (0.418) / T-score (-3.9) / Z-score (-1.5) BD/Dexa Bone Density Study IMPRESSION: The patient is considered osteoporotic as outlined below according to World [employer] Organization (WHO) criteria with a high fracture risk. Reference Information: The T-score is the number of standard deviations above or below the standard which is normal for young adults at their peak bone mineral density. The World Health Organization (WHO) interprets the T-scores as follows: Above -1 Normal bone density Between -1 and -2.5 Osteopenia Equal to / or below -2.5 Osteoporosis As a practical clinical guideline, osteopenia may be graded as follows: Mild -1 through -1.5 Moderate -1.6 through -2.0 Severe -2.1 through -2.4 The Z-score is the number of standard deviations above or below age-matched controls. A Z-score of less than -1.5 would be considered abnormal. References: 1. NIH Osteoporosis and Related Bone Diseases www osteo.org 2. International Society for Clinical Densitometry www iscd.org 3. National Osteoporosis Foundation www nof.org Electronically Signed: Vin Workman MD at 13:18 EDT ,
== END | disposition home or self-care (01) ==
LOC: OPBD 09:06
PROVIDERS: PCP Family Medicine; Referring Provider Family Medicine; Visit Provider Family Medicine
DX: Z13.820 Encounter for screening for osteoporosis (principal); Z78.0 Asymptomatic menopausal state
CPT/HCPCS: 77080

== ENCOUNTER → 2024-06-03 | Outpatient (CLI) | payer MEDICARE, SELFPAY ==
[2024-06-03 11:57] LABS: Absolute Lymphocyte Count 0.72 X10^3/uL (0.83-4.51); Absolute Neutrophil Count 3.3 X10^3/uL (2.0-7.7); Basophil# 0.02 X10^3/uL; Basophil% 0.5 % (0-1); Eosinophil# 0.05 X10^3/uL; Eosinophils% 1.2 % (0-5); Hematocrit 38.2 % (37-47); Hemoglobin 11.7 g/dL (12.0-15.0); Lymphocyte # 0.72 X10^3/ul (0.83-4.51); Lymphocyte % 16.6 % (19-41); Mean Corp Hgb Conc 30.6 g/dL (32-36); Mean Corpuscular Hgb 28.1 pg (27.0-32.0); Mean Corpuscular Volume 91.6 fL (81-99); Mean Platelet Vol. 11.1 fl (6.2-12.0); Monocyte# 0.28 X10^3/uL; Monocyte% 6.5 % (0-10); NRBC Flagged by Analyzer 0 % (0-5); Neutrophil # 3.25 X10^3/uL (2.7-7.7); Neutrophil % 74.7 % (47-70); Platelet Count 173 K/mm3 (150-450); RBC Distribution Width CV 15.5 % (11.6-14.6); RBC Distribution Width SD 51.7 fl (35.1-43.9); Red Blood Count 4.17 M/mm3 (4.2-5.4); White Blood Count 4.3 K/mm3 (4.4-11.0)
[2024-06-03 12:23] LABS: BNP,B-Type NATRIURETIC PEPTIDE 89.2 pg/mL (0-100)
[2024-06-03 12:43] LABS: ALB/GLOB Ratio 1.1 RATIO (0.9-2.4); AST(SGOT) 23 U/L (15-37); Alanine Aminotransfer ALT/SGPT 23 U/L (13-56); Albumin, Serum 3.5 g/dL (3.2-5.0); Alkaline Phosphatase 69 U/L (45-117); Anion Gap 8 (5-15); BUN 10 mg/dL (7-18); Calcium,Total 9.4 mg/dL (8.5-10.1); Chloride 105 mmol/L (98-107); Creatinine, Serum 0.71 mg/dL (0.55-1.02); EST Glomerular Filtration Rate 83 mL/min (>60); Est Glom Filt Rate - Afr Amer 101 mL/min (>60); Globulin 3.3 g/dL (2.2-4.2); Glucose 98 mg/dL (74-106); Potassium 3.8 mmol/L (3.5-5.1); Protein, Total 6.8 g/dL (6.4-8.2); Sodium Level 140 mmol/L (136-145)
== END | disposition home or self-care (01) ==
LOC: MFPLAB 10:40
PROVIDERS: PCP Family Medicine; Referring Provider Family Medicine; Visit Provider Family Medicine
DX: R60.0 Localized edema (principal)
CPT/HCPCS: 80053; 83880; 84443; 85025

== ENCOUNTER → 2024-06-14 | Outpatient (CLI) | payer MEDICARE, SELFPAY ==
[2024-06-14 18:32] LABS: Hemoglobin 12.8 g/dL (12.0-15.0); Mean Corp Hgb Conc 31.2 g/dL (32-36); Mean Corpuscular Hgb 28.3 pg (27.0-32.0); Mean Corpuscular Volume 90.7 fL (81-99); Mean Platelet Vol. 10.7 fl (6.2-12.0); Platelet Count 207 K/mm3 (150-450); RBC Distribution Width SD 50.1 fl (35.1-43.9); RET-HE 33.2 pg (30-35); Red Blood Count 4.52 M/mm3 (4.2-5.4)
[2024-06-14 18:51] LABS: Vitamin B12 628 pg/mL (211-911); Vitamin D,25 Hydroxy 17.1 ng/mL
[2024-06-14 19:09] LABS: Anion Gap 9 (5-15); BUN 15 mg/dL (7-18); BUN/Creat Ratio 16.3 RATIO (10-20); Calcium,Total 9.4 mg/dL (8.5-10.1); Chloride 105 mmol/L (98-107); Creatinine, Serum 0.92 mg/dL (0.55-1.02); EST Glomerular Filtration Rate 62 mL/min (>60); Est Glom Filt Rate - Afr Amer 75 mL/min (>60); Ferritin 78 ng/mL (8-252); Glucose 101 mg/dL (74-106); Iron 97 ug/dL (50-170); Iron Binding Capacity,Total 359 ug/dL (250-450); Magnesium 2.3 mg/dL (1.6-2.6); Phosphorus 3.8 mg/dL (2.5-4.9); Potassium 3.9 mmol/L (3.5-5.1); Sodium Level 137 mmol/L (136-145)
[2024-06-14 22:16] LABS: PTHIN 128.1 pg/mL (18.4-80.1)
[2024-06-14 22:19] LABS: Cholesterol 340 mg/dL (200); High Density Lipoprotein 59 mg/dL; Triglycerides 211 mg/dL; Very Low Density Lipoprotein 42 mg/dL (5-40)
== END | disposition home or self-care (01) ==
LOC: MFPLAB 14:14
PROVIDERS: PCP Family Medicine; Visit Provider Family Medicine
DX: I10 Essential (primary) hypertension (principal); M81.0 Age-related osteoporosis without current pathological fracture; D64.9 Anemia, unspecified; E55.9 Vitamin D deficiency, unspecified; E78.00 Pure hypercholesterolemia, unspecified; R79.89 Other specified abnormal findings of blood chemistry
CPT/HCPCS: 36415; 80048; 80061; 82306; 82607; 82728; 83540; 83550; 83735; 83970; 84100; 85027; 85045

== ENCOUNTER 2024-07-09 14:50 | Emergency (ER) | payer MEDICARE, SELFPAY ==
[2024-07-09 14:50] VITALS: BP 138/62; PULSE 75; RESP 14; TEMP 36.2; O2SAT 98
[2024-07-09 15:00] VITALS: BMI 37.7
--- NOTE | 2024-07-09 15:29 | EX.ED.GENINJ ---
HPI <FAN West - Last Filed: 07/09/24 17:03> History of Present Illness Chief Complaint: Laceration Narrative Narrative: 84-year-old female states her dog jumped up on the couch and his nail accidentally hit her left hand causing a laceration. She is not on blood thinners. Last tetanus unknown. PFSH <FAN West - Last Filed: 07/09/24 17:03> [facility] Medical History Osteoarthritis Hyperlipidemia Hypertension Home Medications ?Medication ?Instructions ?Recorded ?Last Taken ?Type amlodipine 5 mg tablet 5 mg PO DAILY 01/29/24 01/28/24 History cyanocobalamin (vitamin B-12) 500 500 mcg PO QMONTH anemia 01/29/24 01/28/24 History mcg tablet (B-12 DOTS) multivitamin (Daily Multi-Vitamin 1 tab PO DAILY general 01/29/24 Unknown History tablet) omeprazole 20 mg capsule,delayed 20 mg PO DAILY 01/29/24 01/28/24 History release pravastatin 80 mg tablet 80 mg PO DAILY anemia 01/29/24 01/15/24 History sertraline 100 mg tablet 150 mg PO DAILY depression 01/29/24 01/28/24 History sertraline 50 mg tablet 50 mg PO DAILY depression 01/29/24 01/28/24 History acetaminophen 500 mg tablet 1,000 mg (2 x 500 mg) PO Q8 14 01/30/24 Unknown Rx days #0 tabs oxycodone 5 mg tablet 5 mg PO Q6H PRN pain 5 days #20 01/30/24 Unknown Rx tabs amoxicillin 875 mg-potassium 1 tab PO BID 7 days #14 tabs 07/09/24 Unknown Rx clavulanate 125 mg tablet Allergy/AdvReac Type Severity Reaction Status Date / Time Sulfa (Sulfonamide Allergy Unknown Verified 07/09/24 14:51 Antibiotics) Surgical History History of cataract surgery H/O tubal ligation History of bilateral inguinal hernia repair Social History household members: none pets and animals: Yes pets and animals: dog(s) Smoking Status: Former smoker ROS <FAN West - Last Filed: 07/09/24 17:03> ROS ED ROS Narrative Neuro: Negative for motor/sensory dysfunction. Skin: Positive for laceration. Musc: Negative for joint pain, swelling. EXAM <FAN West - Last Filed: 07/09/24 17:03> Physical Exam Narrative Exam Narrative: CONST: Patient sitting in no acute distress. EYES: Normal inspection. NECK: Normal inspection. SKIN: 4 cm gaping V-shaped laceration left dorsal lateral hand. No active bleeding. No foreign body. No exposed tendons. EXTREMITIES: Full range of motion left wrist hand and digits, normal motor and sensory function in median radial and ulnar distributions, 2+ radial pulse and brisk cap refill. NEURO: Alert and answering questions appropriately. PSYCH: Normal affect. Const Vital Signs: 07/09/24 14:50 Temperature 97.1 F L Temperature Source Temporal Pulse Rate 75 Respiratory Rate 14 Blood Pressure 138/62 H Blood Pressure Mean 87 Pulse Ox 98 Oxygen Delivery Method Room Air <Dr. Gallito Vega, DO - Last Filed: 07/09/24 17:16> Physical Exam Const Vital Signs: 07/09/24 14:50 Temperature 97.1 F L Temperature Source Temporal Pulse Rate 75 Respiratory Rate 14 Blood Pressure 138/62 H Blood Pressure Mean 87 Pulse Ox 98 Oxygen Delivery Method Room Air PROC <FAN West - Last Filed: 07/09/24 17:03> Procedures Lacerations Left dorsal hand: Length: 1.57 in Depth: Skin Shape: V shape Prep: Sterile Conditions Laceration repair: Irrigated, Lidocaine and Local Irrigated (ml): 250 Number of Sutures/Izabel: 8 Suture Information: Ethilon and 5-0 MDM <FAN West - Last Filed: 07/09/24 17:03> MDM MDM Narrative Medical decision making narrative: Patient has 4 cm triangular left laceration hand from her dogs nail. Since it is gaping open it does require closure. She otherwise is moving the extremity well and has no bony tenderness and is neurovascularly intact there is no indication for x-rays. See procedure note?I placed 8 simple erupted sutures for closure due to continued bleeding to achieve hemostasis. Tetanus was updated. She was given wound care instructions and discharged in stable condition. Supervisory Physician Note Patient was seen and examined with the Advanced Practice Provider. Nursing notes and vital signs have been reviewed. Pertinent old records have been reviewed. I agree with the essential elements of the ANN's history, physical exam, assessment, and plan. The differential diagnosis and management options were discussed with the ANN. I participated in determining and agree with the management, procedures, final impression and disposition as documented. See changes noted by me. Please see addendum or separate note for any additional details. 84-year-old female presents for evaluation of triangular laceration to the dorsal aspect of the lateral left hand. Patient states her dog jumped on her and scratched her hand with its nail. Not on blood thinners. Unknown tetanus. Denies injury elsewhere. Pertinent physical exam findings: Gen: A&O x3, NAD Head: Normocephalic, atraumatic Eyes: No sclera icterus, conjunctiva clear ENT: Moist mucous membranes Neck: Full range of motion CV: Regular Resp: Nonlabored respiration Musc: Full ROM of the left upper extremity/wrist/hand/fingers/thumb, no deformity, patient has a triangle laceration to the dorsal aspect of the lateral left hand-gaping, no active bleeding, radial and ulnar pulses plus 2 out of 4, good capillary refill, sensation intact Neuro: Alert, oriented, grossly intact Laceration cleaned and repaired see separate procedure note by FAN. Tetanus updated. Augmentin for infection prophylaxis. Monitor for wound infection. Follow-up with PCP. Sutures need to be removed. Impression: 1. Laceration to the left hand, repaired with sutures 2. Tdap updated <Dr. Gallito Vega, DO - Last Filed: 07/09/24 17:16> [facility] Narrative Medical decision making narrative: Patient has 4 cm triangular left laceration hand from her dogs nail. Since it is gaping open it does require closure. She otherwise is moving the extremity well and has no bony tenderness and is neurovascularly intact there is no indication for x-rays. See procedure note?I placed 8 simple erupted sutures for closure due to continued bleeding to achieve hemostasis. Tetanus was updated. She was given wound care instructions and discharged in stable condition. Supervisory Physician Note Patient was seen and examined with the Advanced Practice Provider. Nursing notes and vital signs have been reviewed. Pertinent old records have been reviewed. I agree with the essential elements of the ANN's history, physical exam, assessment, and plan. The differential diagnosis and management options were discussed with the ANN. I participated in determining and agree with the management, procedures, final impression and disposition as documented. See changes noted by me. Please see addendum or separate note for any additional details. 84-year-old female presents for evaluation of triangular laceration to the dorsal aspect of the lateral left hand. Patient states her dog jumped on her and scratched her hand with its nail. Not on blood thinners. Unknown tetanus. Denies injury elsewhere. Pertinent physical exam findings: Gen: A&O x3, NAD Head: Normocephalic, atraumatic Eyes: No sclera icterus, conjunctiva clear ENT: Moist mucous membranes Neck: Full range of motion CV: Regular Resp: Nonlabored respiration Musc: Full ROM of the left upper extremity/wrist/hand/fingers/thumb, no deformity, patient has a triangle laceration to the dorsal aspect of the lateral left hand-gaping, no active bleeding, radial and ulnar pulses plus 2 out of 4, good capillary refill, sensation intact Neuro: Alert, oriented, grossly intact Laceration cleaned and repaired see separate procedure note by PA. Tetanus updated. Augmentin for infection prophylaxis. Monitor for wound infection. Follow-up with PCP. Sutures need to be removed. Impression: 1. Laceration to the left hand, repaired with sutures 2. Tdap updated Discharge Plan Triage Chief Complaint: Laceration ED Midlevel Provider: Cristin Beltran ED Provider: Gallito Vega Dx/Rx/DC Orders Clinical Impression: Dog scratch, Laceration of hand, left Instructions: ED Laceration Extremity Prescriptions: New amoxicillin-pot clavulanate 875-125 mg tablet 1 tab PO BID 7 Days Qty: 14 0RF No Action sertraline 100 mg tablet 150 mg PO DAILY amlodipine 5 mg tablet 5 mg PO DAILY pravastatin 80 mg tablet 80 mg PO DAILY Patient Comments: PT STATES SHE HAS NOT TAKEN CHOLESTEROL MED IN ABOUT 2 WEEKS omeprazole 20 mg capsule,delayed release(DR/EC) 20 mg PO DAILY sertraline 50 mg tablet 50 mg PO DAILY multivitamin [Daily Multi-Vitamin] Tablet 1 tab PO DAILY cyanocobalamin (vitamin B-12) [B-12 DOTS] 500 mcg tablet 500 mcg PO QMONTH acetaminophen 500 mg Tablet 1,000 mg PO Q8 14 Days Qty: 0 0RF oxycodone 5 mg tablet 5 mg PO Q6H PRN (Reason: pain) 5 Days Qty: 20 0RF Primary Care Provider: Terence Johns Referrals: Terence Johns MD [Primary Care Provider] - Activity Restrictions/Additional Instructions: Keep the area clean and take the antibiotics. If no signs of infection like redness, swelling, pus or fever develop please be reevaluated immediately. The stitches need removed in 1 week. Print Language: Greek Disposition Disposition: Home, Self Care Discharge Date/Time: 07/09/24 17:14
[2024-07-09] MEDS: Diphth,Pertuss(Acell),Tet Vac 0.5 ML Vial IM (16:29)
[2024-07-09] MEDS: Amox/Clavulanate 875 MG Tablet PO (16:30)
[2024-07-09] MEDS: Lidocaine 1% (20 ml mdv) 20 ML Vial INFILT (16:30)
== END 2024-07-09 17:14 | disposition home or self-care (01) ==
PROVIDERS: Emergency Provider Surgery; PCP Family Medicine; Visit Provider Surgery
DX: S61.412A Laceration without foreign body of left hand, initial encounter (principal); W54.8XXA Other contact with dog, initial encounter; I10 Essential (primary) hypertension; Z79.899 Other long term (current) drug therapy; Z87.891 Personal history of nicotine dependence; Z23 Encounter for immunization
CPT/HCPCS: 12002; 90471; 90715; 99282

== ENCOUNTER → 2024-12-13 | Outpatient (CLI) | payer MEDICARE, SELFPAY ==
[2024-12-13 18:02] LABS: PTHIN 45 pg/mL (11-61)
[2024-12-13 18:18] LABS: Cholesterol 300 mg/dL (<=200); High Density Lipoprotein 48 mg/dL; Low Density Lipoprotein Calc. 212 mg/dL; Triglycerides 204 mg/dL; Very Low Density Lipoprotein 41 mg/dL (5-40); Vitamin D,25 Hydroxy 30.7 ng/mL (30-100)
[2024-12-13 18:19] LABS: ALB/GLOB Ratio 1.5 RATIO (0.9-2.4); AST(SGOT) 19 U/L (<=31); Alanine Aminotransfer ALT/SGPT 12 U/L (<=34); Albumin, Serum 3.9 g/dL (3.4-4.8); Alkaline Phosphatase 89 U/L (35-104); Anion Gap 11 (5-15); BUN 15 mg/dL (4-19); BUN/Creat Ratio 18.9 RATIO (10-20); Calcium,Total 9.2 mg/dL (7.6-11.0); Carbon Dioxide 22.5 mmol/L (21.0-32.0); Chloride 108 mmol/L (98-108); EST Glomerular Filtration Rate 74 (>60); Globulin 2.6 g/dL (2.2-4.2); Glucose 101 mg/dL (70-99); Potassium 3.6 mmol/L (3.3-5.1); Protein, Total 6.5 g/dL (5.9-8.4); Sodium Level 141 mmol/L (133-145); Total Bilirubin < 0.15 mg/dL (0.00-1.30)
== END | disposition home or self-care (01) ==
LOC: MFPLAB 15:50
PROVIDERS: PCP Family Medicine; Referring Provider Family Medicine; Visit Provider Family Medicine
DX: E78.00 Pure hypercholesterolemia, unspecified (principal); M81.0 Age-related osteoporosis without current pathological fracture; R79.89 Other specified abnormal findings of blood chemistry
CPT/HCPCS: 36415; 80053; 80061; 82306; 83970; 84443